=== PATIENT | male | born 1975 | race Caucasian/White ===

== ENCOUNTER 2018-10-20 19:02 | Emergency (ER) | payer BC ==
[2018-10-20 19:20] VITALS: RESP 18
[2018-10-20] MEDS ORDERED: LIDOCAINE 1% INJ 10MG/ML (20 ML MDV) SQ ONE (19:23)
[2018-10-20] MEDS ORDERED: DIPH,PERTUS(ACELL)TETVAC-LF 0.5 ML VIAL IM ONE (19:30)
[2018-10-20] MEDS ORDERED: ceFAZolin 1,000 MG VIAL (IM USE) IM STA (20:21)
--- NOTE | 2018-10-20 20:50 | XR ---
EXAMINATION TYPE: XR finger LT DATE OF EXAM: 10/20/2018 COMPARISON: NONE HISTORY: Laceration injury with pain. TECHNIQUE: 3 views left thumb are acquired. FINDINGS: No acute displaced fracture is seen. Mild narrowing first interphalangeal joint. Lucency co nsistent with laceration injury radial aspect mid to distal diaphysis first distal phalanx is present , punctate density is seen distal to this, soft tissue foreign body cannot be excluded. IMPRESSION: As above.
--- NOTE | 2018-10-20 21:18 | ED ---
General Adult HPI - General Chief complaint: Wound/Laceration Stated complaint: thumb lac Time Seen by Provider: 10/20/18 19:22 Source: patient Mode of arrival: ambulatory Limitations: no limitations - History of Present Illness Initial comments: 43-year-old male patient presents to the emergency department today for evaluation of left thumb laceration. Patient states approximately 45 minutes prior to arrival he was using a cross bow when the string snapped and cut his finger. Patient denies any numbness to the finger. States he was initially at urgent care with a centimeter for further evaluation. He denies any other injuries. He is unsure when his last tetanus vaccine was given. Denies any history of bleeding disorders or clotting disorders. Patient denies any headache, neck pain, back pain, chest pain, shortness of breath, dizziness, weakness, abdominal pain, nausea, vomiting, or difficulties with bowel movements or urination. - Related Data Previous Rx's Medication Instructions Recorded Cephalexin [Keflex] 500 mg PO Q6H #28 cap 10/20/18 Allergies Allergy/AdvReac Type Severity Reaction Status Date / Time No Known Allergies Allergy Verified 10/20/18 19:50 Review of Systems ROS Statement: Those systems with pertinent positive or pertinent negative responses have been documented in the HPI. ROS Other: All systems not noted in ROS Statement are negative. Past Medical History Past Medical History: No Reported History History of Any Multi-Drug Resistant Organisms: None Reported Past Surgical History: No Surgical Hx Reported Smoking Status: Current every day smoker Past Alcohol Use History: Occasional Past Drug Use History: None Reported General Exam Limitations: no limitations General appearance: alert, in no apparent distress, other (This is a well- developed, well-nourished adult male patient in no acute distress. Vital signs upon presentation are temperature 97.9F, pulse 71, respirations 18, blood pressure 130/86, pulse ox 99% on room air.) Respiratory exam: Present: normal lung sounds bilaterally. Absent: respiratory distress, wheezes, rales, rhonchi, stridor Cardiovascular Exam: Present: regular rate, normal rhythm, normal heart sounds. Absent: systolic murmur, diastolic murmur, rubs, gallop, clicks Extremities exam: Present: full ROM, normal capillary refill, other (Patient has laceration of the distal tip of the left thumb, involves the lateral nail fold. Nail is intact. Skin is otherwise pink, warm, dry. Cap refills less than 3 seconds. Radial pulses are 2+ and equal bilaterally.). Absent: normal inspection, tenderness, pedal edema, joint swelling, calf tenderness Neurological exam: Present: alert, oriented X3, CN II-XII intact Psychiatric exam: Present: normal affect, normal mood Skin exam: Present: warm, dry, intact, normal color. Absent: rash Course Vital Signs 10/20/18 10/20/18 19:15 21:27 Temperature 97.9 F 98.0 F Pulse Rate 71 98 Respiratory 18 18 Rate Blood Pressure 130/86 127/88 O2 Sat by Pulse 99 98 Oximetry Procedures - Laceration Laceration #1 Consent Obtained: verbal consent Indication: laceration Site: hand (Left thumb) Size (cm): 3 Description: irregular Depth: simple, single layer Anesthetic Used: lidocaine 1% Anesthesia Technique: nerve block Amount (mls): 5 Pre-repair: wound explored, irrigated extensively Type of Sutures: nylon Size of Sutures: 5-0 Number of Sutures: 9 Technique: simple, interrupted Patient Tolerated Procedure: well, no complications Medical Decision Making - Medical Decision Making 43-year-old male patient percents to the emergency department today for evaluation of left thumb laceration. Physical examination did reveal a 3 cm laceration involving the lateral nail fold onto the palmar surface. X-ray was obtained and showed evidence for small foreign body. Wound was explored and urinated, no foreign body noted. Patient was given Injection for Possible Open Fracture. He Was Started on Keflex. Wound Was Repaired As Documented. Patient Tolerated This Well. Is Instructed to Follow-Up with the Hand Surgeon for Any Further Issues. He Is Instructed to Follow up with His Primary Care Physician for Recheck in 1-2 Days. He Is Instructed to Return in 7-10 Days to Have Stitches Removed. Return Parameters Discussed in Detail. He Verbalizes Understanding and Agrees with This Plan. - Radiology Data Radiology results: report reviewed, image reviewed 3 views of left upper obtained. Report was reviewed in its entirety. Impression by Dr. Ambrocio shows no acute displaced fracture. Mild narrowing first interphalangeal joint. Lucency consistent with laceration injury radial aspect mid to distal diaphysis first distal phalanx is present, punctate densities seen distal to this, soft tissue foreign body cannot be excluded. Disposition Clinical Impression: Laceration of left thumb Disposition: HOME SELF-CARE Condition: Good Instructions (If sedation given, give patient instructions): Care For Your Stitches (ED), Laceration (ED), Acute Wound Care (ED) Additional Instructions: Cleanse wound twice daily with warm water and antibacterial soap. Keep covered if at work or outside. Do not submerge in water. Return in 7-10 days have the stitches removed. Complete antibiotic prescription in full. Follow-up with your primary care physician for recheck of the wound in 1-2 days. Follow-up with hand surgeon if necessary. Return to the emergency department immediately for any new, worsening, or concerning symptoms. Your prescriptions were sent to [facility] pharmacy on [facility]. Prescriptions: Cephalexin [Keflex] 500 mg PO Q6H #28 cap Is patient prescribed a controlled substance at d/c from ED?: No Referrals: James Acosta DO [Medical Doctor] - 1-2 days Time of Disposition: 21:18
[2018-10-20 21:28] VITALS: BP 127/88; PULSE 98; TEMP 98
== END 2018-10-20 21:28 | disposition home or self-care (01) ==
LOC: EC 19:02
DX: S61.012A Laceration without foreign body of left thumb without damage to nail, initial encounter (principal); F17.200 Nicotine dependence, unspecified, uncomplicated; Z23 Encounter for immunization; W26.8XXA Contact with other sharp object(s), not elsewhere classified, initial encounter
CPT/HCPCS: 73140; 90715; 99283; 12002; 96372; 90471; J0690; J2001